=== PATIENT | male | born 1985 | race Caucasian/White ===

== ENCOUNTER → 2017-02-17 | Outpatient (CLI) | payer BC ==
[~2017-02-17] MED LIST: OPTIRAY 320 IV PRN; PATIENT'S ALLERGY INFO NEEDS ENTERED STA
--- NOTE | 2017-02-17 12:27 | DIAGNOSTIC IMAGING REPORT ---
CT KIDNEY (ABDOMEN) COMBO CT DOSE: 4594.78 mGy.cm CLINICAL HISTORY: N28.1 Renal cyst, renal mass TECHNIQUE: Unenhanced images were obtained through the upper abdomen. The patient was then scanned in a dynamic helical fashion during intravenous administration of 94 cc Optiray 320. Delayed images were also acquired. A dose lowering technique was utilized adhering to the principles of ALARA. COMPARISON STUDY: None. FINDINGS: The visualized portions of the lung bases are unremarkable. No hepatic masses are visualized. The portal vein is patent. There is no ductal dilatation. No gallbladder abnormalities are visualized. No splenic masses are visualized. No pancreatic masses are visualized. Neither adrenal gland is pathologically enlarged. There is no upper abdominal lymphadenopathy. There is no abdominal aortic dilatation. No renal calculi are visualized. There is no hydronephrosis. There is a 14 mm mid pole hypodense right renal lesion. This demonstrates a precontrast attenuation value of 10, and a postcontrast attenuation value 1. The findings are therefore consistent with a renal cyst. Also evident is a 5 mm hyperdense focus within the midpole the right kidney. This is difficult to visualize on postcontrast images but likely represents a tiny hyperdense cyst. No collecting system lesions are visualized. The visualized portions of the ureters are unremarkable in appearance. IMPRESSION: 1. No renal calculi identified 2. 14 mm right renal cyst. 3. Probable 5 mm hyperdense mid pole right renal cyst. 4. No evidence of hydronephrosis. 5. No evidence of pathologic adenopathy. Electronically signed by: Thomas Forbes M.D. 02/17/2017 12:26 PM Dictated Date/Time: 02/17/2017 12:18 PM
== END | disposition home or self-care (01) ==
LOC: C.CTS 11:51
PROVIDERS: ATTEND Urology
DX: N28.1 Cyst of kidney, acquired (principal)